=== PATIENT | female | born 1995 | race Caucasian/White ===

== ENCOUNTER 2021-06-16 04:41 | Emergency (ER) | payer MEDICAID ==
[~2021-06-16] VITALS: Ht 157.5 cm; Wt 54.9 kg
--- NOTE | 2021-06-16 05:08 | NUR ---
PT BIBSELF FROM HOME C/O SORE THROAT, H/A, NAUSEA. PT A/OX4. TOLERATING R/A WELL WITH NO SOB. PT AMBULATORY WITH STEADY GAIT
[2021-06-16 05:55] VITALS: BP 123/80
--- NOTE | 2021-06-16 06:16 | NUR ---
COVID TEST AND INFLUENZA TEST SWABBED AND SENT TO LAB
[2021-06-16 06:32] LABS: BILIRUBIN,URINE NEGATIVE (NEGATIVE); COLOR,URINE YELLOW (YELLOW); LEUKOCYTE ESTERASE ,URINE NEGATIVE (NEGATIVE); NITRITE, URINE NEGATIVE (NEGATIVE); PH,URINE 6.5 (5.0-8.0); PROTEIN,URINE NEGATIVE (NEGATIVE); UGLUCOSE NEGATIVE (NEGATIVE); UROBILINOGEN,URINE 0.2 EU/dL (0.2)
[2021-06-16 06:38] LABS: BACTERIA,URINE None seen /HPF (None Seen); RBC,URINE 0-2 /HPF (0-2); SQUAMOUS EPITHELIAL CELL,UR Few /HPF (None Seen); WBC,URINE 0-2 /HPF (0-3)
[2021-06-16] MEDS ORDERED: CETI1TAB9 PO (06:43)
--- NOTE | 2021-06-16 06:47 | NUR ---
Patient discharged to home in stable condition. Written and verbal after care instructions given. Patient verbalizes understanding of instruction.
== END 2021-06-16 06:52 | disposition home or self-care (01) ==
LOC: ER 04:41
DX: U07.1 COVID-19 (principal); Z87.440 Personal history of urinary (tract) infections; J06.9 Acute upper respiratory infection, unspecified
CPT/HCPCS: 81001; 84703; 87426; 87804; 99283; C9803

== ENCOUNTER 2022-05-17 22:36 | Emergency (ER) | payer MEDICAID ==
[~2022-05-17] VITALS: Ht 149.9 cm; Wt 54.4 kg
[~2022-05-17 22:36] MED LIST: CETI1TAB9 PO
--- NOTE | 2022-05-17 23:10 | NUR ---
BIBSELF C/O LIGHTHEADED AND SOME FLANK PAIN. REQUESTING TO R/O PNEUMONIA. PLACED IN BED 3 ON MONITOR. MD AT BEDSIDE FOR EVAL.
[2022-05-17 23:20] LABS: BASOPHILS % (AUTO) 0.2 % (0.0-2.0); EOSINOPHILS % (AUTO) 1.1 % (0.0-6.0); HEMATOCRIT 37 % (33-45); HEMOGLOBIN 11.7 g/dL (11.5-14.8); LYMPHOCYTES # (AUTO) 2.5 K/uL (0.8-4.8); LYMPHOCYTES % (AUTO) 30.4 % (20.0-44.0); MEAN CORPUSCULAR HGB CONC 32 g/dl (31.0-36.0); MEAN CORPUSCULAR VOLUME 89 fL (82-100); MONOCYTES # (AUTO) 0.5 K/uL (0.1-1.30); MONOCYTES % (AUTO) 6.2 % (2.0-12.0); NEUTROPHILS # (AUTO) 5.2 K/uL (1.8-8.9); NEUTROPHILS % (AUTO) 62.1 % (43.0-81.0); PLATELET COUNT (AUTO) 318 K/uL (150-450); RED BLOOD CELL COUNT(AUTO) 4.11 MIL/uL (4.0-5.2); WHITE BLOOD COUNT (AUTO) 8.3 K/uL (4.3-11.0)
--- NOTE | 2022-05-17 23:24 | NUR ---
PT SIGNED WAIVER
[2022-05-17 23:35] LABS: CALCIUM, SERUM 9.1 mg/dL (8.5-10.1); CREATININE 0.7 mg/dL (0.6-1.3); POTASSIUM 3.5 mmol/L (3.5-5.1)
--- NOTE | 2022-05-18 01:09 | NUR ---
Patient discharged to home in stable condition. Written and verbal after care instructions given. Patient verbalizes understanding of instruction.
[2022-05-18 01:13] VITALS: BP 124/72
== END 2022-05-18 01:13 | disposition home or self-care (01) ==
LOC: ER 22:37
DX: B34.9 Viral infection, unspecified (principal); Z60.2 Problems related to living alone; Z79.899 Other long term (current) drug therapy
CPT/HCPCS: 36415; 71045-TC; 80048-TC; 84484-TC; 84702-TC; 85025-TC

== ENCOUNTER 2023-03-22 20:52 | Emergency (ER) | payer MEDICAID ==
[~2023-03-22] VITALS: Ht 149.9 cm; Wt 54.4 kg
[2023-03-22] MEDS ORDERED: ONDANSETRON HCL/PF 4 MG/2 ML VIAL IVP ONE (23:00)
[2023-03-22] MEDS ORDERED: IV NS 0.9% 1,000 ML BAG IV ONE (23:00)
[2023-03-22] MEDS ORDERED: ONDANSETRON HCL/PF 4 MG/2 ML VIAL ONE (23:10)
[2023-03-22 23:35] LABS: BASOPHILS # (AUTO) 0.1 K/uL (0.0-0.2); BASOPHILS % (AUTO) 0.5 % (0.0-2.0); EOSINOPHILS % (AUTO) 0.3 % (0.0-6.0); HEMATOCRIT 35 % (33-45); HEMOGLOBIN 11.6 g/dL (11.5-14.8); LYMPHOCYTES # (AUTO) 2.4 K/uL (0.8-4.8); LYMPHOCYTES % (AUTO) 22.9 % (20.0-44.0); MEAN CORPUSCULAR HEMOGLOBIN 30 PG (26.0-33.0); MEAN CORPUSCULAR HGB CONC 33 g/dl (31.0-36.0); MEAN CORPUSCULAR VOLUME 90 fL (82-100); MONOCYTES # (AUTO) 0.5 K/uL (0.1-1.30); MONOCYTES % (AUTO) 4.8 % (2.0-12.0); NEUTROPHILS # (AUTO) 7.5 K/uL (1.8-8.9); NEUTROPHILS % (AUTO) 71.5 % (43.0-81.0); PLATELET COUNT (AUTO) 309 K/uL (150-450); RED BLOOD CELL COUNT(AUTO) 3.92 MIL/uL (4.0-5.2); RED CELL DISTRIBUTION WIDTH 14.9 % (11.5-15.0); WHITE BLOOD COUNT (AUTO) 10.5 K/uL (4.3-11.0)
[2023-03-22 23:41] LABS: APPEARANCE,URINE CLEAR (CLEAR); BILIRUBIN,URINE NEGATIVE (NEGATIVE); BLOOD, URINE 1+ Ery/uL (NEGATIVE); COLOR,URINE YELLOW (YELLOW); KETONES,URINE NEGATIVE (NEGATIVE); LEUKOCYTE ESTERASE ,URINE NEGATIVE (NEGATIVE); NITRITE, URINE POSITIVE (NEGATIVE); PH,URINE 6.5 (5.0-8.0); PROTEIN,URINE NEGATIVE (NEGATIVE); UGLUCOSE NEGATIVE (NEGATIVE); UROBILINOGEN,URINE 0.2 EU/dL (0.2)
[2023-03-22 23:43] LABS: PREGNANCY TEST URINE QUAL NEGATIVE (NEGATIVE)
[2023-03-22 23:49] LABS: CALCIUM, SERUM 9.2 mg/dL (8.5-10.1); CREATININE 0.5 mg/dL (0.6-1.3); POTASSIUM 3.8 mmol/L (3.5-5.1)
[2023-03-23 00:01] LABS: ALBUMIN 3.5 g/dL (3.4-5.0); BILIRUBIN,DIRECT 0.1 mg/dL (0.0-0.2); BILIRUBIN,TOTAL 0.2 mg/dL (0.2-1.0); TOTAL PROTEIN, SERUM 8.3 g/dL (6.4-8.2)
[2023-03-23] MEDS ORDERED: CIPROFLOXACIN HCL 500 MG TABLET PO ONE (00:30)
[2023-03-23] MEDS ORDERED: CIPR-262 PO (00:34)
[2023-03-23] MEDS ORDERED: CIPROFLOXACIN HCL 500 MG TABLET ONE (00:41)
[2023-03-23 00:49] VITALS: BP 120/83; TEMP 98.1; O2SAT 99
[2023-03-23 01:04] LABS: ADD URINE CULTURE YES; BACTERIA,URINE Rare /HPF (None Seen); SQUAMOUS EPITHELIAL CELL,UR None Seen /HPF (None Seen); WBC,URINE NONE SEEN /HPF (0-3)
== END 2023-03-23 00:50 | disposition home or self-care (01) ==
LOC: ER 20:54
DX: N39.0 Urinary tract infection, site not specified (principal); R10.2 Pelvic and perineal pain; Z79.899 Other long term (current) drug therapy; Z60.2 Problems related to living alone
CPT/HCPCS: 99285; 96374; 76856; 96361; 85025; 80048; 87086; 83690; 80076; 84703; 81001; 36415; 86850; 84702; J2405; J7030